=== PATIENT | female | born 2000 | race Caucasian/White ===

== ENCOUNTER 2018-07-14 16:48 | Emergency (ER) | payer SELFPAY ==
[~2018-07-14] VITALS: Ht 162.6 cm; Wt 73.6 kg
[2018-07-14 17:49] LABS: EOS # 0.1 (0.04-0.40); EOS % 0.4 % (1.0-5.0); HEMOGLOBIN 13.7 g/dL (12.5-16.0); LYMPH# 2.6 (1.50-4.00); MEAN CELL VOLUME 85 fl (78-100); MEAN CORPUSCULAR HEMOGLOBIN 29 pg (27-31); MEAN CORPUSCULAR HGB CONC 34 g/dL (33-37); MONO # 0.7 (0.20-0.80); PLATELET COUNT 365 K/mm3 (130-400); RED BLOOD COUNT 4.72 M/mm3 (4.10-5.30); RED CELL DISTRIBUTION WIDTH 11.9 % (11.5-14.5)
[2018-07-14 18:01] LABS: NEU # 9.6 (1.40-6.50)
[2018-07-14 18:07] LABS: ALBUMIN 5.5 g/dL (3.5-5.0); CALCIUM 10.1 mg/dL (8.4-10.2); POTASSIUM 3.1 mmol/L (3.6-5.0); TOTAL BILIRUBIN 0.6 mg/dL (0.2-1.3); TOTAL PROTEIN 9.3 g/dL (6.3-8.2)
[2018-07-14 18:21] LABS: PH-URINE 6.5 (5.0 - 8.0); URINE APPEARANCE HAZY; URINE BILIRUBIN NEGATIVE (NEGATIVE); URINE BLOOD NEGATIVE (NEGATIVE); URINE COLOR YELLOW; URINE GLUCOSE NEGATIVE (NEGATIVE); URINE KETONE NEGATIVE (NEGATIVE); URINE LEUKOCYTE ESTERASE NEGATIVE (NEGATIVE); URINE NITRATE NEGATIVE (NEGATIVE); URINE PROTEIN(semi-quant) NEGATIVE (NEGATIVE); URINE UROBILINOGEN NORMAL (NORMAL)
[2018-07-14 19:49] LABS: URINE APPEARANCE CLEAR; URINE COLOR YELLOW
[2018-07-14 19:50] LABS: PH-URINE 5.5 (5.0 - 8.0); URINE BILIRUBIN NEGATIVE (NEGATIVE); URINE BLOOD NEGATIVE (NEGATIVE); URINE GLUCOSE NEGATIVE (NEGATIVE); URINE KETONE NEGATIVE (NEGATIVE); URINE LEUKOCYTE ESTERASE NEGATIVE (NEGATIVE); URINE NITRATE NEGATIVE (NEGATIVE); URINE PROTEIN(semi-quant) NEGATIVE (NEGATIVE); URINE UROBILINOGEN NORMAL (NORMAL); URINE WBC 0-1 /hpf (0-3)
[2018-07-14 20:21] VITALS: BP 112/62
== END 2018-07-14 20:21 | disposition home or self-care (01) ==
LOC: ED 16:48 → EDBD 17:25 → ED 20:21
PROVIDERS: Nurse Practitioner Family
DX: R10.11 Right upper quadrant pain (principal); R11.2 Nausea with vomiting, unspecified; Z87.442 Personal history of urinary calculi; E87.6 Hypokalemia
CPT/HCPCS: J2405; J7030; Q9967

== ENCOUNTER → 2018-07-15 | Outpatient (CLI) | payer SELFPAY ==
[2018-07-14 20:21] VITALS: BP 112/62
[2018-07-15 15:44] LABS: EOS # 0.1 (0.04-0.40); EOS % 0.6 % (0.1-4.0); HEMATOCRIT 36.4 % (35.0-45.0); HEMOGLOBIN 12.4 g/dL (12.0-15.0); LYMPH# 2.5 (1.20-3.40); MEAN CELL VOLUME 86 fl (78-95); MEAN CORPUSCULAR HEMOGLOBIN 29 pg (26-32); MEAN CORPUSCULAR HGB CONC 34 g/dL (33-37); MEAN PLATELET VOLUME 9.8 fl (7.4-10.4); MONO # 0.6 (0.10-0.60); NEU # 6.8 (1.40-6.50); PLATELET COUNT 338 K/mm3 (130-400); RED BLOOD COUNT 4.22 M/mm3 (4.10-5.30); RED CELL DISTRIBUTION WIDTH 11.9 % (11.5-14.5); WHITE BLOOD COUNT 10.1 K/mm3 (4.8-10.8)
[2018-07-15 15:54] LABS: ALBUMIN 5.1 g/dL (3.5-5.0); CALCIUM 9.5 mg/dL (8.4-10.2); POTASSIUM 4.1 mmol/L (3.6-5.0); TOTAL BILIRUBIN 0.7 mg/dL (0.2-1.3); TOTAL PROTEIN 8.2 g/dL (6.3-8.2)
== END ==
LOC: LAB 15:24
PROVIDERS: Nurse Practitioner Primary Care
DX: R10.9 Unspecified abdominal pain (principal)

== ENCOUNTER → 2018-07-16 | Outpatient (CLI) | payer SELFPAY ==
[2018-07-14 20:21] VITALS: BP 112/62
== END ==
LOC: RAD 07:57
DX: K80.20 Calculus of gallbladder without cholecystitis without obstruction (principal)

== ENCOUNTER → 2018-07-20 | Outpatient (CLI) | payer SELFPAY ==
[2018-07-14 20:21] VITALS: BP 112/62
[2018-07-20 11:07] LABS: EOS # 0.1 (0.04-0.40); EOS % 1.3 % (0.1-4.0); HEMOGLOBIN 13.3 g/dL (12.0-15.0); LYMPH# 1.9 (1.20-3.40); MEAN CELL VOLUME 86 fl (78-95); MEAN CORPUSCULAR HEMOGLOBIN 29 pg (26-32); MEAN CORPUSCULAR HGB CONC 34 g/dL (33-37); MEAN PLATELET VOLUME 9.8 fl (7.4-10.4); MONO # 0.6 (0.10-0.60); PLATELET COUNT 355 K/mm3 (130-400); RED BLOOD COUNT 4.53 M/mm3 (4.10-5.30); WHITE BLOOD COUNT 9.7 K/mm3 (4.8-10.8)
[2018-07-20 11:27] LABS: ALBUMIN 5.1 g/dL (3.5-5.0); CALCIUM 9.5 mg/dL (8.4-10.2); POTASSIUM 4.5 mmol/L (3.6-5.0); TOTAL BILIRUBIN 0.8 mg/dL (0.2-1.3); TOTAL PROTEIN 8.4 g/dL (6.3-8.2)
== END ==
LOC: LAB 10:11
PROVIDERS: Nurse Practitioner Primary Care
DX: K80.20 Calculus of gallbladder without cholecystitis without obstruction (principal)